=== PATIENT | female | born 1995 | race Caucasian/White ===

== ENCOUNTER → 2017-02-26 | Outpatient (REF) | LOC: WSOH 08:46 | DX: Z00.00 Encounter for general adult medical examination without abnormal findings (principal) ==

== ENCOUNTER → 2017-02-26 | Outpatient (REF) | LOC: WSOH 08:47 | DX: Z00.00 Encounter for general adult medical examination without abnormal findings (principal) ==

== ENCOUNTER 2018-12-06 14:58 | Emergency (ER) | payer OTHER, BC ==
[~2018-12-06] VITALS: Ht 162.6 cm; Wt 75.0 kg
[2018-12-06 15:08] VITALS: BP 111/57; TEMP 98
[2018-12-06] MEDS ORDERED: NORCO 325 MG-51 TAB PO (17:35)
[2018-12-06 18:10] VITALS: PULSE 52
== END 2018-12-06 18:10 | disposition home or self-care (01) ==
LOC: COL.ER 14:58
DX: S20.219A Contusion of unspecified front wall of thorax, initial encounter (principal); S16.1XXA Strain of muscle, fascia and tendon at neck level, initial encounter; V49.49XA Driver injured in collision with other motor vehicles in traffic accident, initial encounter

== ENCOUNTER 2019-01-18 10:47 | Emergency (ER) | payer BC ==
[~2019-01-18] VITALS: Ht 162.6 cm; Wt 70.5 kg
[~2019-01-18 10:47] MED LIST: NORCO 325 MG-51 TAB PO
[2019-01-18 10:54] VITALS: BP 124/55; TEMP 97.8
[2019-01-18] MEDS ORDERED: CRUTCHES MC (11:43)
[2019-01-18] MEDS ORDERED: NORCO 325 MG-51 TAB PO (12:02)
[2019-01-18 12:11] VITALS: PULSE 60
== END 2019-01-18 12:16 | disposition home or self-care (01) ==
LOC: COL.ER 10:47
DX: S86.912A Strain of unspecified muscle(s) and tendon(s) at lower leg level, left leg, initial encounter (principal); F17.290 Nicotine dependence, other tobacco product, uncomplicated; X50.1XXA Overexertion from prolonged static or awkward postures, initial encounter
CPT/HCPCS: J1885